=== PATIENT | male | born 1980 | race Caucasian/White ===

== ENCOUNTER 2021-03-03 20:12 | Emergency (ER) | payer BC, OTHER ==
[~2021-03-03 20:12] MED LIST: BENTYL 20MG TAB20 MG PO; ECOTRIN81 MG PO; FLOMAX0.4 MG PO; LODINE CAP 300300 MG PO; PERCOCET 5/325 T1 EA PO; ZOFRAN ODT 4 MG4 MG PO; ZOFRAN ODT 4 MG4 MG SL
[2021-03-03 21:08] LABS: HEMOGLOBIN 18.2 gm/dl (14.0-17.5); RED BLOOD COUNT 5.75 M/UL (4.20-5.50); WHITE BLOOD COUNT 11.4 K/UL (4.5-11.0)
[2021-03-03 22:04] LABS: BUN/CREATININE RATIO 15 (0-10)
[2021-03-04] MEDS ORDERED: ZOFRAN ODT 4 MG4 MG PO (01:37)
[2021-03-04] MEDS ORDERED: PHENERGAN 25 MG25 M1 PO (01:37)
== END 2021-03-04 01:44 | disposition home or self-care (01) ==
LOC: ER1 20:12
PROVIDERS: Family Medicine
DX: K52.9 Noninfective gastroenteritis and colitis, unspecified (principal); Z79.01 Long term (current) use of anticoagulants; Z88.5 Allergy status to narcotic agent; Z20.822 Contact with and (suspected) exposure to COVID-19
CPT/HCPCS: 0240U; 71045; 80053; 82550; 82553; 83605; 83690; 83735; 83874; 84484; 85025; 85610; 93005; 96374; 96375; 96376; 99284; J1170; J1885; J2270; J2405; J2550; Q9967